=== PATIENT | female | born 1955 | race Caucasian/White ===

== ENCOUNTER 2017-01-25 10:38 | Day surgery (SDC) | payer OTHER ==
[~2017-01-25] VITALS: Ht 147.3 cm; Wt 54.4 kg
[~2017-01-25 10:38] MED LIST: ASCO-294 PO; ASPI-973 PO; ERGO2000 PO; Sodium Chloride LOK Flush 10 mL Syringe IV PRN; fentaNYL-PF 50 mCg/mL 2 mL Inj IVPUSH PRN
[2017-01-25 12:07] VITALS: BP 138/87; PULSE 79; RESP 16; O2SAT 98
[2017-01-25] MEDS: 0.9% Sodium Chloride 1,000 ML IV SCH ×2 (12:12→13:07)
--- NOTE | 2017-01-25 14:06 | PCM.ENDCOL ---
Colonoscopy Date of Service: Jan 25, 2017 Physician Tyron Duque MD Pre Procedure Diagnosis: Screening Post Procedure Dx & Findings: Polyp hemorrhoid diverticuli Procedure Colonoscopy PROCEDURE IN DETAIL: Prep adequate Withdrawal time 10 minutes After unremarkable rectal examination the Olympus video colonoscope was inserted patient's anal canal and was advanced to cecum. Landmarks were identified including the ileocecal valve and appendiceal orifice. Scope was withdrawn systematically. Visualized colonic mucosa showed healthy shiny mucosa with normal healthy-appearing vasculature. In the sigmoid colon there were 2 polyps. These are 2-3 mm in size. They were resected completely using cold snare. Patient also had several diverticuli. There a few in the sigmoid colon small however on the right side of the colon there were also several medium size diverticula as well. In the rectum retroflexion was done which showed hemorrhoids. Anal canal was inspected carefully on the way out and hemorrhoids noted. Impression Polyps 2 status post complete removal Diverticuli Hemorrhoids Recommendation Repeat colonoscopy in 5 years Diverticular diet Presedation Assessment Risks and Benefits Informed consent was obtained from the patient after all risks and benefits including but not limited to drug reaction, infection, pain, bleeding, perforation, as well as alternatives were discussed. Patient monitoring Continuous pulse oximetry, cardiac monitoring, blood pressure monitoring, IV access, and oxygen at 2L per nasal cannula. Periprocedural Fentanyl: Fentanyl 50mcg Incrementally Midazolam: Midazolam 2mg Incrementally Complications There were no periprocedural complications identified. Post Procedure Plan Post Procedure Recommendations 1. Restrict activities today. 2. Resume normal activities in the morning. 3. Resume medications. 4. Patient informed of normal post procedure side effects as bloating, drowsiness, blood streaking in the stool. 5. average risk CRCS. If colon polyps come back as: -Hyperplastic- can repeat colonoscopy in 10 years -Tubular adenoma- repeat colonoscopy in 5 years -Tubulovillous/villous adenoma- repeat colonoscopy in 3 years -If any dysplasia- return to clinic as soon as possible 6. Please don't hesitate to call me with any questions. Tyron Duque MD Jan 25, 2017 14:06
[2017-01-25 14:08] VITALS: BP 129/78; PULSE 87; RESP 16; O2SAT 100
[2017-01-25 14:19] VITALS: BP 117/74; PULSE 87; RESP 16; O2SAT 100
[2017-01-25 14:26] VITALS: BP 136/85; PULSE 76; RESP 16; O2SAT 99
--- NOTE | 2017-01-27 13:27 | PATH ---
SURGICAL PATHOLOGY Attending Physician:Tyron Duque M.D. CASE STATUS: Signed Out PATIENT NAME: VANESSA MCDANIEL PID: [id number] : 1955 DATE COLLECTED:01/25/2017 00:00 SPECIMEN: Colon, Biopsy CLINICAL HISTORY: 1. SIGMOID POLYP X2 FINAL DIAGNOSIS: 1.SIGMOID POLYPS: TUBULAR ADENOMAS, TWO. ICD10 CODE D12.5 GROSS DESCRIPTION: The specimen is received in one formalin filled container labeled with the patient's name, sublabeled "sigmoid polyp" and consists of 2 portions of tissue which aggregate to 0.6 x 0.5 x 0.3 CM. The specimen is entirely submitted in one cassette. 01/26/2017 [facility] MICRO DESCRIPTION: See diagnosis. ICD-9 CODES: CPT CODES: 1: 46270 Electronically Signed Out Keri Fonseca MD [facility]ology [facility] [address], [place] [address] Technical component performed at [facility], [address] [place] [address] [address], [place], [address]
== END 2017-01-25 23:59 | disposition home or self-care (01) ==
LOC: END 10:38
PROVIDERS: ATTEND Internal Medicine
DX: Z12.11 Encounter for screening for malignant neoplasm of colon (principal); D12.5 Benign neoplasm of sigmoid colon; K64.9 Unspecified hemorrhoids; K57.30 Diverticulosis of large intestine without perforation or abscess without bleeding; M79.2 Neuralgia and neuritis, unspecified; M77.12 Lateral epicondylitis, left elbow; Q05.9 Spina bifida, unspecified; R06.00 Dyspnea, unspecified; Z79.82 Long term (current) use of aspirin
CPT/HCPCS: 45385; 88305; G0500; J7030